=== PATIENT | male | born 1955 | race Caucasian/White ===

== ENCOUNTER 2016-12-02 06:57 | Day surgery (SDC) | payer BC ==
[~2016-12-02] VITALS: Ht 172.7 cm; Wt 73.0 kg
[2016-12-02] VITALS (10 sets, daily range): BP systolic 113–147; BP diastolic 65–88; PULSE 65–78; RESP 14–22; Ht 172.7 cm; Wt 73.0 kg
[~2016-12-02 06:57] MED LIST: BUDE6HFA INHALATION; DOCU100C26 PO; IBUP800T25 PO; NAPR-688 PO; ONDA8TAB83 PO; OXYC1TAB23 PO; PRAV40TA76 PO; TAMS-14 PO; TAMS0.4C2 PO; TRAM50TA2 PO
[2016-12-02] MEDS ORDERED: SOD CHLORIDE 0.45% 1,000 ML IV SCH (07:00)
[2016-12-02] MEDS ORDERED: FAMOTIDINE 20 MG TAB PO PRN (07:00)
[2016-12-02] MEDS ORDERED: DIPHENHYDRAMINE 50 MG CAP PO PRN (07:00)
[2016-12-02] MEDS ORDERED: DIAZEPAM 5 MG TAB PO PRN (07:00)
[2016-12-02] MEDS ORDERED: ASPI-664 PO (07:59)
[2016-12-02] MEDS ORDERED: SIMV10TA PO (08:00)
[2016-12-02] MEDS ORDERED: ALBU8.5H3 INH (08:01)
[2016-12-02 08:20] LABS: ADD SCAN DIFF NO
[2016-12-02 08:37] LABS: INR 0.91; PROTIME 12.2 Sec (12.2-14.2)
[2016-12-02 08:38] LABS: BASOPHIL # 0.1 10^3/ul (0.0-0.1); BASOPHILS % 0.9 % (0.0-2.0); EOSINOPHILS # 0.4 10^3/ul (0.0-0.5); EOSINOPHILS % 6.7 % (0.0-7.0); HEMATOCRIT 43.4 % (42.0-52.0); LYMPHOCYTES # 1.3 10^3/ul (0.8-2.9); LYMPHOCYTES % 24.3 % (15.0-51.0); MEAN CORPUSCULAR HEMOGLOBIN 30.7 pg (29.0-33.0); MEAN CORPUSCULAR HGB CONC 34.6 g/dl (32.0-37.0); MEAN CORPUSCULAR VOLUME 88.8 fl (82.0-101.0); MEAN PLATELET VOLUME 10.1 fl (7.4-10.4); MONOCYTE # 0.4 10^3/ul (0.3-0.9); MONOCYTES % 7.1 % (0.0-11.0); NEUTROPHIL # 3.4 10^3/ul (1.6-7.5); NEUTROPHILS % 60.8 % (39.0-77.0); PARTIAL THROMBOPLASTIN TIME 27.4 Sec (25.0-35.0); PLATELET COUNT 238 10^3/UL (140-415); RED BLOOD COUNT 4.89 10^6/ul (4.70-6.10); WHITE BLOOD COUNT 5.5 10^3/ul (4.8-10.8)
--- NOTE | 2016-12-02 08:38 | RADRPT ---
PROCEDURE: XR Chest. CLINICAL INDICATION: pre op TECHNIQUE: Single frontal view of the chest was obtained. COMPARISON: Chest x-ray from 12/19/2015 FINDINGS: The heart and mediastinum are within normal limits. The lungs are clear. There is no significant pleural effusion or pneumothorax. IMPRESSION: No acute disease. RPTAT: EE Physician Jeromy Date Time Electronically viewed and signed by Caesar Puga Physician on 12/02/2016 08:37 RA/
[2016-12-02 08:56] LABS: CALCIUM 9.6 mg/dl (8.4-10.2); CREATININE 0.9 mg/dl (0.61-1.24); POTASSIUM 4.2 mmol/L (3.5-5.1)
[2016-12-02 09:07] LABS: CHOL/HDL RATIO 4.7 RATIO
[2016-12-02] MEDS ORDERED: LIDOCAINE 2% (SDV) 5 ML INJ ONE (12:03)
[2016-12-02] MEDS ORDERED: HEPARIN 1000 UNITS/ML 10 ML INJ ONE (12:03)
[2016-12-02] MEDS ORDERED: FENTAnyl 50 MCG/ML VIAL ONE (12:03)
[2016-12-02] MEDS ORDERED: IODIXANOL LOCM 100 ML BTL ONE (12:03)
[2016-12-02] MEDS ORDERED: VERAPAMIL 5 MG INJ ONE (12:04)
[2016-12-02] MEDS ORDERED: MIDAZOLAM 1 MG/ML 2 ML INJ ONE (12:04)
[2016-12-02] MEDS ORDERED: NITROGLYCERIN (IC) 100 MCG/ML INJ ONE (12:04)
[2016-12-02] MEDS ORDERED: ADENOSINE 90 MG in SOD CHLORIDE 0.9% 90 ML IV SCH (13:00)
[2016-12-02] MEDS ORDERED: ALBUTEROL HFA 8 GM INHALER ONE (13:17)
[2016-12-02] MEDS ORDERED: morphine 2 MG INJ IV PRN (14:00)
[2016-12-02] MEDS ORDERED: AL HYDROX/MG HYDROX/SIMETH 30 ML CUP PO PRN (14:00)
[2016-12-02] MEDS ORDERED: HOLD all METFORMIN and METFORMIN CONTAINING medications for 48 hours post procedure. Chec XX SCH (14:00)
[2016-12-02] MEDS ORDERED: ACETAMINOPHEN 325 MG TAB PO PRN (14:00)
--- NOTE | 2016-12-02 14:04 | RADRPT ---
Vent Rate: 67 bpm RR Interval: 0 msec OR Interval: 144 msec QRS Duration: 138 msec QT Interval: 446 msec QTC Interval: 471 msec P-R-T [place]: 69 - 38 - 74 degrees Normal sinus rhythm Left bundle branch block Abnormal ECG Electronically Signed By: Nikolay Carl [id number]
--- NOTE | 2016-12-03 13:20 | CARRPT ---
DATE OF PROCEDURE: 12/02/2016 TYPE OF PROCEDURE: 1. Left heart catheterization. 2. Coronary angiography. 3. Fractional performed in the LAD. ATTENDING PHYSICIAN: Arjun Rock MD REFERRING PHYSICIAN: Dr. Dashawn Mcgill TYPE OF ANESTHESIA: Conscious and local. INDICATION: Chest pain, with positive stress test findings. BRIEF HISTORY AND HOSPITAL COURSE: Mr. Salas is a 61-year-old male with a history of hypertension and dyslipidemia who initially presented with complaints of substernal chest pain. The patient subs equently underwent a cardiac stress test, revealing a decreased EF at peak ischemia by dobutamine st ress echo. Given these findings the patient was referred for and presents today in order to undergo left heart catheterization to assess for the possibility of significant obstructive coronary artery disease pending symptoms of chest pain and subsequent positive stress test findings. PROCEDURE: After informed consent was obtained, the patient was brought to the [facility] cardiac catheterization laboratory, where his right radial area was prepped and draped in t he usual sterile fashion. Lidocaine was infiltrated in the right radial artery in order to achieve adequate local anesthesia. Using the modified Seldinger technique the right radial artery was cannu lated and a 6-Tuvaluan arterial sheath was placed. A 6-Tuvaluan JL3.5 catheter was used to cannulate th e left main coronary ostium. With contrast injection, multiple views of the left coronary arterial system were obtained. The JL3.5 was removed over a guidewire and a JR4 was used to cannulate the ri ght coronary arterial ostium. With contrast injection, multiple views of the right coronary system were obtained. The JR4 was additionally used to cross the LV and left ventricular end-diastolic pre ssure was measured. The catheter was pulled back across the aortic valve to assess for significant gradient, which there was not, and removed. Subsequently at this time given the findings of an inte rmediate lesion in the patient's LAD, we moved directly into an interventional procedure. The patie nt had an XB LAD3 guide used to cannulate the left main coronary ostium. A 0.014 pressure wire was passed distal to the lesion and the patient had IFR performed. Value above the cutoff was 0.92, and then had a standard FFR performed with adenosine IV, infusing 140 mcg/kg per minute x3-1/2 minutes i n order to achieve adequate hyperemia, achieving a total of 0.82 above the cutoff for a flow-limitin g lesion. Subsequently at this time the interventional guide and guidewires were removed after dennis l angiographic images were obtained to assure that no complication occurred from this FFR procedure, which they did not. Subsequently after removal of the catheter and wires, the patient's sheath was removed. A TR band was applied. This completed the procedure. There were no noted complications. FINDINGS: Coronary angiography: Left main about half way down into the LAD. Left main 4 mm was used ci rcumflex proximally is 3-mm vessel with an ostial 20% stenosis. In the mid portion there is 30% sten osis, ectatic region, and then the obtuse marginal at 3 mm with no significant focal stenoses. Circ umflex continuation in the AV groove is free of significant focal stenoses. LAD proximally is a 3.5-mm vessel and in the mid portion has a 60% intermediate stenosis in the LAD. There is a diagonal that branches just at the area of stenosis, which is a 2.5-mm vessel, with no significant focal stenoses. There is a very proximal branching diagonal additionally, 2 mm, with no significant focal stenoses. The right coronary artery proximally is a 3.5-mm vessel, in its midportion has tandem 20% stenosis. The remainder of the right coronary artery is free of significant focal stenoses. It gives off a 2 -mm PDA with 20% ostial stenosis and a 3-mm posterolateral branch with no significant focal stenoses . Measurement of left ventricular end diastolic pressure of 4 to 5. No significant aortic stenosis by gradient. TOTAL FLUOROSCOPY TIME: 9.4 minutes. TOTAL CONTRAST: 100 mL. FFR to IFR achieved a result of 0.92. Blood level for flow-limiting lesion, and FFR with reggie dard adenosine infusion 140 mcg/kg per minute, achieved a result of 0.82 above the level of cutoff f or a flow-limiting lesion. TOTAL FLUOROSCOPY TIME: 9.4 minutes. TOTAL CONTRAST: 100 mL. IMPRESSION: 1. Intermediate stenosis in the LAD with FFR and IFR values above the cutoff for a flow-limiting le clarita. 2. Low normal left heart filling pressures. 3. No significant aortic stenosis by gradient. RECOMMENDATIONS: In light of the procedural findings at this time would: 1. Maximize medical management. 2. Aggressive risk factor reduction. 3. Patient will be readmitted to the same day surgery center for post-cath observation, with probab le discharge later this afternoon. 4. Patient will have a followup appointment in our office, at which time we will discuss the result s of this procedure and assure that the patient has no post-catheterization complications. Dictated By: ARJUN MORGAN/BERNARD Conf#: [id number] DID#: [id number]
== END 2016-12-02 17:54 | disposition home or self-care (01) ==
LOC: SDS 06:57
PROVIDERS: ATTEND Internal Medicine
DX: I25.10 Atherosclerotic heart disease of native coronary artery without angina pectoris (principal); I10 Essential (primary) hypertension; R94.39 Abnormal result of other cardiovascular function study; J45.909 Unspecified asthma, uncomplicated
CPT/HCPCS: 71010; 80048; 80061; 85025; 85610; 85730; 93005; 93458; 93571; C1769; C1887; J0153; J1644; J2250; J3010; Q9967; Z7610

== ENCOUNTER 2018-07-25 06:08 | Day surgery (SDC) | END 2018-07-25 13:07 | disposition home or self-care (01) ==